=== PATIENT | male | born 1965 | race American Indian/Alaskan Native ===

== ENCOUNTER 2017-02-25 04:54 | Emergency (ER) | payer BC ==
[2017-02-25 05:38] LABS: Hematocrit 44.2 % (35.5-45.6); Hemoglobin 15.2 gm/dl (11.8-15.2); Mean Corpuscular HGB Conc 35 % (32-34); Mean Corpuscular Hemoglobin 31 pg (28-32); Mean Corpuscular Volume 90 fl (84-94); Platelet Count 178 K/mm3 (140-440); Red Blood Count 4.94 M/mm3 (3.65-5.03); Red Cell Distribution Width 12.4 % (13.2-15.2); White Blood Count 7.8 K/mm3 (4.5-11.0)
[2017-02-25 05:52] LABS: Bilirubin,Urine NEG (Negative); Blood,Urine NEG (Negative); Ketones,Urine NEG (Negative); Leukocyte Esterase,Urine NEG (Negative); Mucus,Urine 3+ /HPF; Nitrite,Urine NEG (Negative); Urobilinogen,Urine < 2.0 mg/dL (<2.0)
[2017-02-25 06:00] LABS: Alanine Aminotransferase 31 units/L (7-56); Albumin 4.2 g/dL (3.9-5); Albumin/Globulin Ratio 1.1 %; Alkaline Phosphatase 82 units/L (35-129); Anion Gap 21 mmol/L; BUN/Creatinine Ratio 8.46; Blood Urea Nitrogen 11 mg/dL (9-20); Calcium 8.6 mg/dL (8.4-10.2); Carbon Dioxide 22 mmol/L (22-30); Glucose 145 mg/dL (75-100); Lipase 21 units/L (13-60); Potassium 3.8 mmol/L (3.6-5.0); Sodium 137 mmol/L (137-145); Total Protein 8.1 g/dL (6.3-8.2)
[2017-02-25 06:04] LABS: INR 1.05 (0.87-1.13)
[2017-02-25 06:05] LABS: Partial Thromboplastin Time 29.7 Sec. (24.2-36.6)
[2017-02-25 07:35] LABS: Basophils % (Manual) 0 % (0.0-1.8); Blastocytes % (Manual) 0 %
[2017-02-25 07:36] LABS: Anisocytosis Few; Diff Status Complete; Eosinophils % (Manual) 0 % (0.0-4.3); Hypochromasia Few; Total Cells Counted Percent 0
[2017-02-25] MEDS ORDERED: ZOFRAN IV ONE (07:56)
[2017-02-25] MEDS ORDERED: NACL 0.9% 1000 ML 1,000 ML IV ONE (07:56)
[2017-02-25] MEDS ORDERED: CARAFATE PO ONE (07:56)
[2017-02-25] MEDS ORDERED: PEPCID IV ONE (07:56)
[2017-02-25] MEDS ORDERED: TYLENOL PO ONE (07:56)
[2017-02-25] MEDS ORDERED: BENTYL IM ONE (07:57)
--- NOTE | 2017-02-25 07:57 | Emergency Department Report ---
ED Abdominal Pain HPI - General Chief Complaint: Abdominal Pain Stated Complaint: EMESIS Time Seen by Provider: 02/25/17 07:49 Source: patient, RN notes reviewed Mode of arrival: Ambulatory Limitations: No Limitations - History of Present Illness Initial Comments: This is a 51-year-old male. He is previously unknown to me. His fire technician is Dr. Torres. He has a past medical history of hernia. The patient presents to the ER with resolved abdominal cramping, nausea, vomiting and diarrhea. The emesis is clear, nonbloody and nonbilious. He reports he's had multiple episodes. He also reports multiple episodes of nonbloody, diarrhea. He reports that his has had similar symptoms, and they believe that they consumed bad fried chicken. Of note, patient reports having had a colonoscopy this past Sunday, which was unremarkable and uncomplicated. His abdominal pain has resolved, his nausea and vomiting have resolved. There is no testicular pain. The patient denies irritative and obstructive urinary symptoms. No fevers that he is aware of, no chest pain or shortness of breath. MD Complaint: abdominal pain -: Gradual Location: diffuse Severity scale (0 -10): 0 Consistency: now resolved Improves With: nothing Worsens With: nothing Context: possible food poisoning, sick contacts Associated Symptoms: nausea, vomiting, diarrhea - Related Data Previous Rx's Medication Instructions Recorded Last Taken Type Dicyclomine [Bentyl] 10 mg PO QID PRN #20 capsule 02/25/17 Unknown Rx Famotidine [Pepcid] 20 mg PO QDAY #30 tablet 02/25/17 Unknown Rx Ondansetron [Zofran Odt] 4 mg PO QID PRN #20 tab.rapdis 02/25/17 Unknown Rx Allergies Allergy/AdvReac Type Severity Reaction Status Date / Time No Known Allergies Allergy Verified 02/25/17 05:05 ED Review of Systems ROS: Stated complaint: EMESIS Other details as noted in HPI Constitutional: denies: fever, malaise Eyes: denies: vision change ENT: denies: epistaxis Gastrointestinal: abdominal pain, nausea, vomiting, diarrhea Genitourinary: denies: urgency, testicular pain Musculoskeletal: as per HPI. denies: back pain Skin: denies: lesions Neurological: denies: headache ED Past Medical Hx - Past Medical History Previous Medical History?: No - Surgical History Past Surgical History?: Yes Additional Surgical History: Hernia - Social History Smoking Status: Never Smoker Substance Use Type: None - Medications Home Medications: Home Medications Medication Instructions Recorded Confirmed Last Taken Type Dicyclomine [Bentyl] 10 mg PO QID PRN #20 capsule 02/25/17 Unknown Rx Famotidine [Pepcid] 20 mg PO QDAY #30 tablet 02/25/17 Unknown Rx Ondansetron [Zofran Odt] 4 mg PO QID PRN #20 tab.rapdis 02/25/17 Unknown Rx ED Physical Exam - General Limitations: No Limitations General appearance: alert, in no apparent distress - Head Head exam: Present: atraumatic, normocephalic - Eye Eye exam: Present: normal appearance, EOMI. Absent: nystagmus - ENT ENT exam: Present: normal exam, normal orophraynx, mucous membranes moist, normal external ear exam - Neck Neck exam: Present: normal inspection, full ROM. Absent: tenderness, meningismus - Respiratory Respiratory exam: Present: normal lung sounds bilaterally. Absent: respiratory distress, wheezes, rales, rhonchi, stridor, chest wall tenderness, accessory muscle use, decreased breath sounds, prolonged expiratory - Cardiovascular Cardiovascular Exam: Present: regular rate, normal rhythm, normal heart sounds. Absent: bradycardia, tachycardia, irregular rhythm, systolic murmur, diastolic murmur, rubs, gallop - GI/Abdominal GI/Abdominal exam: Present: soft, normal bowel sounds. Absent: distended, tenderness, guarding, rebound, rigid, pulsatile mass - Rectal Rectal exam: Present: deferred - Extremities Exam Extremities exam: Present: normal inspection, full ROM, normal capillary refill. Absent: tenderness, pedal edema, joint swelling, calf tenderness - Back Exam Back exam: Present: normal inspection, full ROM. Absent: tenderness, CVA tenderness (R), CVA tenderness (L), muscle spasm, paraspinal tenderness, vertebral tenderness - Neurological Exam Neurological exam: Present: alert, oriented X3, normal gait, other (Extraocular movements intact. Tongue midline. No facial droop. Facial sensation intact to light touch in the V1, V2, V3 distribution bilaterally. 5 and 5 strength in 4 extremities.. Sensation is intact to light touch in 4 extremities.). Absent : motor sensory deficit - Psychiatric Psychiatric exam: Present: normal affect, normal mood - Skin Skin exam: Present: warm, dry, intact, normal color. Absent: rash ED Course Vital Signs 02/25/17 02/25/17 02/25/17 04:57 07:43 08:34 Temperature 99.3 F Pulse Rate 120 H Respiratory 18 Rate Blood Pressure 110/64 Blood Pressure 112/75 [Right] O2 Sat by Pulse 99 96 97 Oximetry 02/25/17 02/25/17 09:00 09:27 Temperature Pulse Rate 91 H Respiratory 16 Rate Blood Pressure 108/67 Blood Pressure 108/67 [Right] O2 Sat by Pulse 98 Oximetry - Reevaluation(s) Reevaluation #1: 02/25/17 09:23 Differential diagnosis: Complication from colonoscopy, gastroenteritis, colitis , diverticulitis Assessment and plan: 51-year-old male with nausea, vomiting, diarrhea, multiple sick contacts who have had similar symptoms, now with resolved pain and symptoms. He is afebrile, his tachycardia has resolved, his abdominal examination is benign, and he is tolerating liquid feeds. The CT scan demonstrates no acute intra-abdominal disease. Of note, the patient did not endorse chest pain, shortness of breath, diaphoresis. Initial EKG was performed which is abnormal, but given the patient's clinical history of nausea , vomiting, diarrhea, sick contacts, I think acute coronary syndrome is very unlikely. The patient is low risk by EL score, and low risk by heart score. A troponin was sent prior to my evaluation, however, I do not think that the patient requires acute coronary syndrome risk stratification. Furthermore, the patient did present within 8 hours after the onset of symptoms, so asked for the [employer] clinical policy, myocardial infarction is excluded with 1 set of troponins if symptoms haven't present for greater than 8 hours. A repeat EKG demonstrated resolution of the nonspecific abnormalities, and given that the patient is chest pain-free and symptom-free at this time, I believe he is suitable to follow-up with an outpatient primary care doctor, or gastroenterologists or rail director. He will be discharged at this time, and return precautions are reviewed. Patient and his both verbalized understanding. ED Medical Decision Making - Lab Data Result diagrams: 02/25/17 05:24 02/25/17 05:24 Vital Signs 02/25/17 02/25/17 02/25/17 04:57 07:43 08:34 Temperature 99.3 F Pulse Rate 120 H Respiratory 18 Rate Blood Pressure 110/64 Blood Pressure 112/75 [Right] O2 Sat by Pulse 99 96 97 Oximetry 02/25/17 09:00 Temperature Pulse Rate Respiratory Rate Blood Pressure 108/67 Blood Pressure [Right] O2 Sat by Pulse Oximetry Lab Results 02/25/17 02/25/17 02/25/17 Range/Units 05:24 05:24 05:24 WBC 7.8 (4.5-11.0) K/mm3 RBC 4.94 (3.65-5.03) M/mm3 Hgb 15.2 (11.8-15.2) gm/dl Hct 44.2 (35.5-45.6) % MCV 90 (84-94) fl MCH 31 (28-32) pg MCHC 35 H (32-34) % RDW 12.4 L (13.2-15.2) % Plt Count 178 (140-440) K/mm3 Add Manual Diff Complete Total Counted 100 Seg Neutrophils % Shipyard [employer]orer Seg Neuts % (Manual) 62.0 (40.0-70.0) % Band Neutrophils % 37.0 % Lymphocytes % (Manual) 1.0 L (13.4-35.0) % Reactive Lymphs % (Man) 0 % Monocytes % (Manual) 0 (0.0-7.3) % Eosinophils % (Manual) 0 (0.0-4.3) % Basophils % (Manual) 0 (0.0-1.8) % Metamyelocytes % 0 % Myelocytes % 0 % Promyelocytes % 0 % Blast Cells % 0 % Nucleated RBC % Not Reportable Seg Neutrophils # Man 4.8 (1.8-7.7) K/mm3 Band Neutrophils # 2.9 K/mm3 Lymphocytes # (Manual) 0.1 L (1.2-5.4) K/mm3 Abs React Lymphs (Man) 0.0 K/mm3 Monocytes # (Manual) 0.0 (0.0-0.8) K/mm3 Eosinophils # (Manual) 0.0 (0.0-0.4) K/mm3 Basophils # (Manual) 0.0 (0.0-0.1) K/mm3 Metamyelocytes # 0.0 K/mm3 Myelocytes # 0.0 K/mm3 Promyelocytes # 0.0 K/mm3 Blast Cells # 0.0 K/mm3 WBC Morphology Not Reportable Hypersegmented Neuts Not Reportable Hyposegmented Neuts Not Reportable Hypogranular Neuts Not Reportable Smudge Cells Not Reportable Toxic Granulation Not Reportable Toxic Vacuolation Not Reportable Dohle Bodies Not Reportable Pelger-Huet Anomaly Not Reportable Jeyson Rods Not Reportable Platelet Estimate Appears normal Clumped Platelets Not Reportable Plt Clumps, EDTA Not Reportable Large Platelets Not Reportable Giant Platelets Not Reportable Platelet Satelliting Not Reportable Plt Morphology Comment Not Reportable RBC Morphology Not Reportable Dimorphic RBCs Not Reportable Polychromasia Not Reportable Hypochromasia Few Poikilocytosis Not Reportable Anisocytosis Few Microcytosis Not Reportable Macrocytosis Not Reportable Spherocytes Not Reportable Pappenheimer Bodies Not Reportable Sickle Cells Not Reportable Target Cells Not Reportable Tear Drop Cells Not Reportable Ovalocytes Not Reportable Helmet Cells Not Reportable [place] Bodies Not Reportable [place] Rings Not Reportable [place] Cells Not Reportable Bite Cells Not Reportable Crenated Cell Not Reportable Elliptocytes Not Reportable Acanthocytes (Spur) Not Reportable Rouleaux Not Reportable Hemoglobin C Crystals Not Reportable Schistocytes Not Reportable Malaria parasites Not Reportable Bert Bodies Not Reportable Hem Pathologist Commnt No PT 14.2 (12.2-14.9) Sec. INR 1.05 (0.87-1.13) APTT 29.7 (24.2-36.6) Sec. Sodium 137 (137-145) mmol/L Potassium 3.8 (3.6-5.0) mmol/L Chloride 98.0 (98-107) mmol/L Carbon Dioxide 22 (22-30) mmol/L Anion Gap 21 mmol/L BUN 11 (9-20) mg/dL Creatinine 1.3 (0.8-1.5) mg/dL Estimated GFR 58 ml/min BUN/Creatinine Ratio 8.46 % Glucose 145 H (75-100) mg/dL Calcium 8.6 (8.4-10.2) mg/dL Total Bilirubin 0.60 (0.1-1.2) mg/dL AST 24 (5-40) units/L ALT 31 (7-56) units/L Alkaline Phosphatase 82 (35-129) units/L Troponin T < 0.010 (0.00-0.029) ng/mL Total Protein 8.1 (6.3-8.2) g/dL Albumin 4.2 (3.9-5) g/dL Albumin/Globulin Ratio 1.1 % Lipase 21 (13-60) units/L Urine Color (Yellow) Urine Turbidity (Clear) Urine pH (5.0-7.0) Ur Specific [place] (1.003-1.030) Urine Protein (Negative) mg/dL Urine Glucose (UA) (Negative) mg/dL Urine Ketones (Negative) mg/dL Urine Blood (Negative) Urine Nitrite (Negative) Urine Bilirubin (Negative) Urine Urobilinogen (<2.0) mg/dL Ur Leukocyte Esterase (Negative) Urine WBC (Auto) (0.0-6.0) /HPF Urine RBC (Auto) (0.0-6.0) /HPF U Epithel Cells (Auto) (0-13.0) /HPF Urine Mucus /HPF // Range/Units Unknown WBC (4.5-11.0) K/mm3 RBC (3.65-5.03) M/mm3 Hgb (11.8-15.2) gm/dl Hct (35.5-45.6) % MCV (84-94) fl MCH (28-32) pg MCHC (32-34) % RDW (13.2-15.2) % Plt Count (140-440) K/mm3 Add Manual Diff Total Counted Seg Neutrophils % Seg Neuts % (Manual) (40.0-70.0) % Band Neutrophils % % Lymphocytes % (Manual) (13.4-35.0) % Reactive Lymphs % (Man) % Monocytes % (Manual) (0.0-7.3) % Eosinophils % (Manual) (0.0-4.3) % Basophils % (Manual) (0.0-1.8) % Metamyelocytes % % Myelocytes % % Promyelocytes % % Blast Cells % % Nucleated RBC % Seg Neutrophils # Man (1.8-7.7) K/mm3 Band Neutrophils # K/mm3 Lymphocytes # (Manual) (1.2-5.4) K/mm3 Abs React Lymphs (Man) K/mm3 Monocytes # (Manual) (0.0-0.8) K/mm3 Eosinophils # (Manual) (0.0-0.4) K/mm3 Basophils # (Manual) (0.0-0.1) K/mm3 Metamyelocytes # K/mm3 Myelocytes # K/mm3 Promyelocytes # K/mm3 Blast Cells # K/mm3 WBC Morphology Hypersegmented Neuts Hyposegmented Neuts Hypogranular Neuts Smudge Cells Toxic Granulation Toxic Vacuolation Dohle Bodies Pelger-Huet Anomaly Jeyson Rods Platelet Estimate Clumped Platelets Plt Clumps, EDTA Large Platelets Giant Platelets Platelet Satelliting Plt Morphology Comment RBC Morphology Dimorphic RBCs Polychromasia Hypochromasia Poikilocytosis Anisocytosis Microcytosis Macrocytosis Spherocytes Pappenheimer Bodies Sickle Cells Target Cells Tear Drop Cells Ovalocytes Helmet Cells Perdomo-[place] Bodies [place] Rings [place] Cells Bite Cells Crenated Cell Elliptocytes Acanthocytes (Spur) Rouleaux Hemoglobin C Crystals Schistocytes Malaria parasites Bert Bodies Hem Pathologist Commnt PT (12.2-14.9) Sec. INR (0.87-1.13) APTT (24.2-36.6) Sec. Sodium (137-145) mmol/L Potassium (3.6-5.0) mmol/L Chloride (98-107) mmol/L Carbon Dioxide (22-30) mmol/L Anion Gap mmol/L BUN (9-20) mg/dL Creatinine (0.8-1.5) mg/dL Estimated GFR ml/min BUN/Creatinine Ratio % Glucose (75-100) mg/dL Calcium (8.4-10.2) mg/dL Total Bilirubin (0.1-1.2) mg/dL AST (5-40) units/L ALT (7-56) units/L Alkaline Phosphatase (35-129) units/L Troponin T (0.00-0.029) ng/mL Total Protein (6.3-8.2) g/dL Albumin (3.9-5) g/dL Albumin/Globulin Ratio % Lipase (13-60) units/L Urine Color Yellow (Yellow) Urine Turbidity Clear (Clear) Urine pH 5.0 (5.0-7.0) Ur Specific [place] 1.024 (1.003-1.030) Urine Protein 100 mg/dl (Negative) mg/dL Urine Glucose (UA) Neg (Negative) mg/dL Urine Ketones Neg (Negative) mg/dL Urine Blood Neg (Negative) Urine Nitrite Neg (Negative) Urine Bilirubin Neg (Negative) Urine Urobilinogen < 2.0 (<2.0) mg/dL Ur Leukocyte Esterase Neg (Negative) Urine WBC (Auto) 2.0 (0.0-6.0) /HPF Urine RBC (Auto) 2.0 (0.0-6.0) /HPF U Epithel Cells (Auto) 2.0 (0-13.0) /HPF Urine Mucus 3+ /HPF Vital Signs 02/25/17 02/25/17 02/25/17 04:57 07:43 08:34 Temperature 99.3 F Pulse Rate 120 H Respiratory 18 Rate Blood Pressure 110/64 Blood Pressure 112/75 [Right] O2 Sat by Pulse 99 96 97 Oximetry 02/25/17 09:00 Temperature Pulse Rate Respiratory Rate Blood Pressure 108/67 Blood Pressure [Right] O2 Sat by Pulse Oximetry - EKG Data -: EKG Interpreted by Sd - EKG Data 02/25/17 09:25 EKG #1 demonstrated sinus tachycardia, borderline rightward axis , nonspecific ST abnormality, QTC 338 ms, not morphologically consistent with STEMI. EKG #2 temperatures normal sinus, 92 bpm, normal intervals, normal axis, not morphologically consistent with systemic - Radiology Data Radiology results: report reviewed, image reviewed CT scan of the abdomen and pelvis with IV contrast demonstrates no acute disease. Diffuse fatty infiltration of the liver is noted. This is an incidental finding. This can be followed up by his primary care doctor or GI physician Critical care attestation.: If time is entered above; I have spent that time in minutes in the direct care of this critically ill patient, excluding procedure time. ED Disposition Clinical Impression: History of nausea and vomiting Disposition: DC-01 TO HOME OR SELFCARE Is pt being admited?: No Does the pt Need Aspirin: No Condition: Stable Instructions: Gastroenteritis (ED) Additional Instructions: Symptoms most likely coming from gastroenteritis/food poisoning. Take the pain medication, nausea medication as needed/directed. Please note that the initial EKG demonstrated nonspecific abnormalities. Given the clinical picture, I think heart disease is unlikely. Nevertheless, the patient should follow-up with rail director within the next 7-10 days. For your convenience, I have listed to local [employer] policy specialist sales enablement consultant. Follow- up with them as directed. Follow up with her primary care doctor or fire technician within the next month or as directed. Return to the ER right away with new pain, worsened pain, migration of pain, fevers or chills, chest pain or shortness of breath, intractable nausea or vomiting, confusion. Prescriptions: Dicyclomine [Bentyl] 10 mg PO QID PRN #20 capsule PRN Reason: Pain Famotidine [Pepcid] 20 mg PO QDAY #30 tablet Ondansetron [Zofran Odt] 4 mg PO QID PRN #20 tab.rapdis PRN Reason: Nausea Referrals: [facility],PRIMARY CARE [Other] - 3-5 Days FRANCK TORRES MD [Staff Physician] - 3-5 Days NELL MA MD [Staff Physician] - 3-5 Days CHRISTELLE MOBLEY MD [Staff Physician] - 3-5 Days
[2017-02-25] MEDS ORDERED: NACL ONE (07:58)
--- NOTE | 2017-02-25 08:39 | Cat Scan Report ---
FINAL REPORT PROCEDURE: CT ABDOMEN PELVIS W CON TECHNIQUE: Computerized axial tomography of the abdomen and pelvis was performed after the IV injection of iodinated nonionic contrast. HISTORY: abd pain n/v/d COMPARISON: None FINDINGS: Visualized lower thorax: Mild bibasilar subsegmental atelectasis. Liver: Diffuse fatty infiltration. Spleen: Normal size and attenuation. Gallbladder and biliary system: Normal. Pancreas: Normal. Adrenals: Normal. Kidneys: Normal. GI tract: Limited in evaluation without oral contrast. No gross focal lesion. No bowel obstruction. Normal appendix. Lymph nodes and mesentery: Normal. Vasculature: Normal. Bladder: Normal. Reproductive organs: Normal. Peritoneum: No free fluid. Musculoskeletal structures: No significant abnormality. Other: Small umbilical hernia containing fat. Subtle right paracentral ventral hernia seen on series 3, image 93 containing fat. IMPRESSION: Diffuse fatty infiltration of the liver. Small umbilical hernia containing fat and subtle right paracentral abdominal ventral hernia containing fat.
[2017-02-25 09:17] VITALS: BP 108/67
== END 2017-02-25 09:58 | disposition home or self-care (01) ==
LOC: ED 04:54
DX: R19.7 Diarrhea, unspecified (principal)
CPT/HCPCS: 36415; 74177; 80053; 81001; 83690; 84484; 85007; 85025; 85610; 85730; 93005; 93010; 96361; 96372; 96374; 96375; 99285; J0500; J2405; J7030; Q9967